=== PATIENT | male | born 1965 | race Two or more races ===

== ENCOUNTER 2024-08-13 05:37 | Emergency (ER) | payer OTHER ==
[~2024-08-13] VITALS: Ht 162.6 cm; Wt 72.6 kg
[2024-08-13] MEDS ORDERED: HYOSCYAMINE SULFATE 0.125 MG TAB.SUBL SL ONE (07:00)
[2024-08-13] MEDS ORDERED: 0.9 % SODIUM CHLORIDE 500 ML IV STA (07:00)
[2024-08-13] MEDS ORDERED: METOCLOPRAMIDE HCL 5 MG/ML VIAL IM STA (07:02)
[2024-08-13] MEDS ORDERED: FAMOtidine 10 MG/ML (4ML VIAL) IV PUSH STA (07:02)
[2024-08-13] MEDS ORDERED: PROMETHAZINE HCL 50 MG/ML AMPUL IM STA (07:02)
[2024-08-13] MEDS ORDERED: KETOROLAC TROMETHAMINE 30 MG VIAL IV STA (07:12)
[2024-08-13] MEDS ORDERED: PROMETHAZINE HCL 50 MG/ML AMPUL IM ONE (07:21)
[2024-08-13] MEDS ORDERED: HYOSCYAMINE SULFATE 0.125 MG TAB.SUBL ONE (07:21)
[2024-08-13] MEDS ORDERED: KETOROLAC TROMETHAMINE 60 MG VIAL IM ONE ×3 (07:21→10:45)
[2024-08-13] MEDS ORDERED: METOCLOPRAMIDE HCL 5 MG/ML VIAL ONE (07:22)
[2024-08-13] MEDS ORDERED: FAMOTIDINE/PF 20 MG/2 ML VIAL ONE (07:22)
[2024-08-13 09:17] LABS: CALCIUM 9.3 mg/dL (8.5-10.1); CREATININE SERUM 0.86 mg/dL (0.70-1.30); GFR 91.34; POTASSIUM 3.72 mEq/L (3.5-5.1)
[2024-08-13 10:04] LABS: HEMATOCRIT 37.7 % (39.0-48.0); HEMOGLOBIN 12.8 g/dL (13-16.00); MEAN CELL VOLUME 112.3 fL (80.0-100.00); MEAN CORPUSCULAR HGB CONC 33.9 g/dl (32.0-36.0); PLATELET COUNT 130 K/uL (150-450); RED BLOOD COUNT 3.36 M/uL (4.00-6.00); RED CELL DISTRIBUTION WIDTH 13.5 % (11.5-14.5)
[2024-08-13] MEDS ORDERED: DICY20TA PO (10:38)
[2024-08-13] MEDS ORDERED: KETO10TA2 PO (10:38)
[2024-08-13] MEDS ORDERED: PEPCID AC20 MG PO (10:38)
[2024-08-13] MEDS ORDERED: DICYCLOMINE HCL 10 MG CAPSULE PO ONE (10:39)
[2024-08-13] MEDS ORDERED: DICYCLOMINE HCL 20 MG TABLET PO ONE (10:45)
== END 2024-08-13 12:12 | disposition home or self-care (01) ==
LOC: ER 05:39
DX: K59.01 Slow transit constipation (principal); R10.9 Unspecified abdominal pain

== ENCOUNTER 2024-08-14 02:40 | Emergency (ER) | payer OTHER ==
[~2024-08-14] VITALS: Ht 162.6 cm; Wt 72.6 kg
[~2024-08-14 02:40] MED LIST: DICY20TA PO; KETO10TA2 PO; PEPCID AC20 MG PO
[2024-08-14] MEDS ORDERED: ACETAMINOPHEN 500 MG GEL..CAP PO ONE ×2 (04:00→04:05)
== END 2024-08-14 04:30 | disposition left against medical advice (07) ==
LOC: ER 02:42
DX: R10.9 Unspecified abdominal pain (principal)